=== PATIENT | male | born 1990 | race Caucasian/White ===

== ENCOUNTER 2022-08-23 18:40 | Emergency (ER) | payer OTHER, SELFPAY ==
--- NOTE | ~2022-08-23 | XR_ITS ---
EXAMINATION: XR chest 1V portable Exam Date/Time: 08/23/2022 20:20 SUPERVISING DEPUTY HISTORY: PT FEELS THERE IS FOOD STUCK IN ESOPHAGUS Comparison: None available. RESULT: Lines, tubes, and devices: None. Lungs and pleura: Clear. Cardiomediastinal silhouette: Stable. Other: No acute osseous or upper abdominal finding. Scoliosis. IMPRESSION: No acute cardiopulmonary process. No radiopaque foreign body Reviewed, dictated and finalized at location [facility]. [facility]
[2022-08-23 18:56] VITALS: BP 150/73; PULSE 76; RESP 14; TEMP 37.1; O2SAT 100
--- NOTE | 2022-08-23 20:23 | ED.GENADULT ---
HPI - General Adult General Chief complaint: Unspecified Stated complaint: esophagus obstruction Time Seen by Provider: 08/23/22 20:00 History of Present Illness HPI narrative: This is a 31-year-old male presenting to ED with a chief complaint of food impaction. The patient was eating his mother's roast beef. He said the beef was quite tough. He felt some pressure in his chest and he was unable to swallow foods without vomiting. This lasted for approximately 2-1/2 hours. While he was in our waiting room he felt the obstruction was relieved after some vomiting. His symptoms have now resolved. Patient says that he has had this occur several times over the last 6 months always when eating his mother's roast beef. He always that is because he did not chew it well enough. Related Data Allergies Allergy/AdvReac Type Severity Reaction Status Date / Time No Known Allergies Allergy Unknown Verified 08/23/22 19:02 NKDA Allergy Mild unknown Uncoded 08/23/22 19:02 Review of Systems Review of Systems: CONSTITUTIONAL: Denies night sweats. EYES: No eye pain ENT: Denies rhinorrhea CARDIOVASCULAR: Denies palpitations RESPIRATORY: Denies hemoptysis GASTROINTESTINAL: Denies hematemesis GENITOURINARY: Denies hematuria. SKIN: Denies rash MUSCULOSKELETAL: Denies myalgia. NEUROLOGIC: Denies weakness. PSYCHIATRIC: Denies delusions [facility] Family History Family History Other Carcinoma of colon Family history of cardiovascular disease Family history of malignant neoplasm of brain Family history of thyroid disease Hypertension Malignant neoplasm of prostate Social History Social History Smoking status: Never smoker Second hand tobacco smoke exposure: No Alcohol intake: never Substance use: never Substance use type: does not use Exam Narrative: APPEARANCE: No apparent distress. Head: atraumatic. EYES: EOMI, NOSE: Atraumatic NECK: Trachea midline RESPIRATORY: No increased rate of breathing , clear to auscultation bilaterally CARDIOVASCULAR: RRR, ABDOMINAL: Non-distended, nontender no guarding or rebound MUSCULOSKELETAl: No obvious deformities NEURO: Alert. Moving 4/4 extremities SKIN:: Warm, dry. Normal color PSYCHIATRIC: Normal affect Course Vital Signs Vital signs: Vital Signs Temperature 98.7 F 08/23/22 18:56 Pulse Rate 76 08/23/22 18:56 Respiratory Rate 14 08/23/22 18:56 Blood Pressure 150/73 H 08/23/22 18:56 Pulse Oximetry 100 08/23/22 18:56 Oxygen Delivery Room Air 08/23/22 18:56 Temperature 98.7 F 08/23/22 18:56 Pulse Rate 76 08/23/22 18:56 Respiratory Rate 14 08/23/22 18:56 Blood Pressure 150/73 H 08/23/22 18:56 Pulse Oximetry 100 08/23/22 18:56 Oxygen Delivery Room Air 08/23/22 18:56 Medical Decision Making MDM Narrative Medical decision making narrative: this is a 31-year-old male presenting ED with a food impaction. His symptoms have resolved before he got the emergency department. Chest x-ray was ordered which was normal with no radiopaque foreign bodies. Patient was able to tolerate p.o.. He will be discharged. He has been encouraged to follow up with GI as he has had several incidences of his food impaction with his mother's roast beef over the last 6 months. Vital Signs Vital Signs: Vital Signs Temperature 98.7 F 08/23/22 18:56 Pulse Rate 76 08/23/22 18:56 Respiratory Rate 14 08/23/22 18:56 Blood Pressure 150/73 H 08/23/22 18:56 Pulse Oximetry 100 08/23/22 18:56 Oxygen Delivery Room Air 08/23/22 18:56 Temperature 98.7 F 08/23/22 18:56 Pulse Rate 76 08/23/22 18:56 Respiratory Rate 14 08/23/22 18:56 Blood Pressure 150/73 H 08/23/22 18:56 Pulse Oximetry 100 08/23/22 18:56 Oxygen Delivery Room Air 08/23/22 18:56 Discharge Plan Discharge Clinical Impression: Food impaction
[2022-08-23 21:10] VITALS: BP 127/75; PULSE 85; RESP 17; O2SAT 94
== END 2022-08-23 21:11 | disposition home or self-care (01) ==
PROVIDERS: Emergency Provider Emergency Medicine
DX: T18.128A Food in esophagus causing other injury, initial encounter (principal); X10.1XXA Contact with hot food, initial encounter
CPT/HCPCS: 71045; 99283

== ENCOUNTER 2022-08-24 00:51 | Day surgery (SDC) | payer OTHER, SELFPAY ==
[2022-08-24] VITALS (8 sets, daily range): BP systolic 90–154; BP diastolic 42–96; PULSE 70–117; RESP 18–28; TEMP 36.8; O2SAT 98–100
--- NOTE | ~2022-08-24 | CT_ITS ---
EXAMINATION:CT chest high resolution w con DATE: 08/24/2022 03:06 INDICATION: Food impaction. TECHNIQUE: Computed tomography (CT) of the chest was performed with 75 mL Omnipaque 350 intravenous c ontrast. Automated exposure control and iterative reconstruction technique were employed. The dose-le ngth product (DLP) was 197.96 mGy-cm. COMPARISON: Chest single view 08/23/2022 FINDINGS: There is mild scarring at the lung apices. There is a 5 mm nodule in left lower lobe, likel y benign. No pleural effusion. There is a small sliding hiatal hernia. There is fluid in the esophagu s. There is a 1.8 cm mass of food at the gastroesophageal junction. The heart size is normal. No pleu ral effusion. There is thoracic dextroscoliosis. IMPRESSION: 1. 1.8 cm mass of food at the gastroesophageal junction with retained fluid in the esophagus. 2. Small sliding hiatal hernia. Reviewed, dictated and finalized at location [facility]. [facility]
--- NOTE | 2022-08-24 01:17 | ED.GENADULT ---
HPI - General Adult General Chief complaint: Unspecified Stated complaint: Food Bolus Not Improving Time Seen by Provider: 08/24/22 01:09 History of Present Illness HPI narrative: This is a 31-year-old male presenting to the ED with a food bolus impaction. He was eating a tough roast beef earlier today and felt like he had a sensation of fullness in his throat. He is no longer to able to swallow fluids. He was seen earlier and said that his symptoms resolved and went home but they have recurred. Patient is unable to tolerate liquids. He is able to swallow his own saliva. Patient does not have chest pain or difficulty breathing. The patient states he has had difficulty swallowing tough meats several times over the last 6 months but he has been able to eventually flushed them down with fluids. Patient has a uncle who of esophageal cancer. The uncle was a lifelong smoker and felt the cancer later in life. Related Data Allergies Allergy/AdvReac Type Severity Reaction Status Date / Time No Known Allergies Allergy Unknown Verified 08/24/22 01:00 Review of Systems Review of Systems: CONSTITUTIONAL: Denies night sweats. EYES: No eye pain ENT: Denies rhinorrhea CARDIOVASCULAR: Denies palpitations RESPIRATORY: Denies hemoptysis GASTROINTESTINAL: Denies hematemesis GENITOURINARY: Denies hematuria. SKIN: Denies rash MUSCULOSKELETAL: Denies myalgia. NEUROLOGIC: Denies weakness. PSYCHIATRIC: Denies delusions PMFSH Family History Family History Other Carcinoma of colon Family history of cardiovascular disease Family history of malignant neoplasm of brain Family history of thyroid disease Hypertension Malignant neoplasm of prostate Social History Social History Smoking status: Never smoker Second hand tobacco smoke exposure: No Alcohol intake: never Substance use: never Substance use type: does not use Exam Narrative: APPEARANCE: No apparent distress. Head: atraumatic. normal oropharynx exam. EYES: EOMI, NOSE: Atraumatic NECK: Trachea midline RESPIRATORY: No increased rate of breathing CARDIOVASCULAR: RRR, ABDOMINAL: Non-distended Soft, not tender no guarding or rebound MUSCULOSKELETAl: No obvious deformities NEURO: Alert. Moving 4/4 extremities SKIN:: Warm, dry. Normal color PSYCHIATRIC: Normal affect Course Vital Signs Vital signs: Vital Signs Temperature 98.3 F 12/14/22 00:57 Pulse Rate 117 H 08/24/22 00:57 Respiratory Rate 19 08/24/22 00:57 Blood Pressure 154/96 H 08/24/22 00:57 Pulse Oximetry 100 08/24/22 00:57 Oxygen Delivery Room Air 08/24/22 00:57 Temperature 98.3 F 08/24/22 00:57 Pulse Rate 113 H 08/24/22 02:59 Respiratory Rate 18 08/24/22 02:59 Blood Pressure 146/74 H 08/24/22 02:59 Pulse Oximetry 100 08/24/22 02:59 Oxygen Delivery Room Air 08/24/22 00:57 Medical Decision Making MDM Narrative Medical decision making narrative: This is a 31-year-old male presenting to ED with difficulty swallowing. Differential includes food impaction, esophageal cancer, mobility issues or structural changes the esophagus. patient given IV fluids and antiemetics. Glucagon has poor evidence and was not administered. A CT chest was ordered. no official read was provided overnight. However per my read the esophagus is dilated above the lower esophageal sphincter with internal contents that are consistent with a food impaction. Official read will occur in the morning. Patient will be admitted to the hospital for possible endoscopy in the morning. GI was consulted and report given to Dr. Dillon. Patient has been accepted by Dr. Porras Vital Signs Vital Signs: Vital Signs Temperature 98.3 F 08/24/22 00:57 Pulse Rate 117 H 08/24/22 00:57 Respiratory Rate 19 08/24/22 00:57 Blood Pressure 154/96 H 08/24/22 00:5
[2022-08-24] MEDS: SODIUM CHLORIDE 0.9% IV 1,000 ML 999 ML IV CONT (02:12)
[2022-08-24] MEDS: ONDANSETRON INJ 4 MG/2 ML VIAL IV PUSH (02:12)
[2022-08-24 02:14] LABS: Basophils Absolute Auto 0.1 K/mm3 (0.0-0.1); Basophils Percent Auto 0.6 % (0.2-1.2); Eosinophils Percent Auto 0.5 % (0-4.4); Hemoglobin 16.8 g/dL (14.0-18.0); Immature Granulocyte Absolute 0.02 K/mm3 (0.00-0.031); Immature Granulocyte Percent A 0.2 % (0-0.5); Lymphocytes Absolute Auto 1.74 K/mm3 (0.9-3.2); Lymphocytes Percent Auto 19.7 % (18.3-44.2); Mean Corpuscular HGB Conc 34.3 g/dl (32-36); Mean Corpuscular Volume 84.5 fl (80-100); Mean Platelet Volume 8.3 fl (7.4-10.4); Monocytes Absolute Auto 0.8 K/mm3 (0.1-0.6); Monocytes Percent Auto 8.9 % (2.6-8.5); Neutrophils Absolute Auto 6.2 K/mm3 (1.3-6.7); Neutrophils Percent Auto 70.1 % (45.5-73.1); Platelet Count Result 333 k/mm3 (150-375); Red Cell Distribution Width 13.2 % (11.5-14.5); White Blood Count 8.9 K/mm3 (4.5-10.0)
[2022-08-24 02:28] LABS: Alanine Aminotransferase 22 U/L (6-50); Albumin Level 5.2 g/dL (3.5-5.1); Alkaline Phosphatase 57 U/L (38-126); Anion Gap 10 mmol/L (8-16); Aspartate Amino Transferase 30 U/L (17-59); Bilirubin,Total 1.4 mg/dL (0.2-1.3); Blood Urea Nitrogen 8 mg/dL (9-20); Calcium 9.3 mg/dL (8.4-10.2); Carbon Dioxide 29 mmol/L (22-30); Chloride 99 mmol/L (98-107); Estimated CRCL calculation 101 ml/min; Estimated Glomerular Filt Rate > 60; Glucose 110 mg/dL (65-110); Lipase 62 U/L (23-300); Magnesium 2.1 mg/dL (1.6-2.3); Potassium 3.5 mmol/L (3.4-5.0); Sodium 138 mmol/L (137-145)
[2022-08-24 02:43] LABS: Influenza A QL RT-PCR Negative (Negative); Influenza B QL RT-PCR Negative (Negative); SARS-CoV-2 RNA PCR Negative
--- NOTE | 2022-08-24 03:03 | PC.NURSE ---
Report given to DANNIELLE Escobar.
[2022-08-24] MEDS: LACTATED RINGERS 1,000 ML 125 ML IV CONT (08:15)
[2022-08-24] MEDS: LACTATED RINGERS 1,000 ML 150 ML IV CONT (10:04)
--- NOTE | 2022-08-24 10:15 | PM.HPGS ---
History of Present Illness History of Present Illness Consent: Risks, benefits, and alternatives have been discussed and questions answered. Patient agrees to proceed with procedure. Chief complaint: Food Bolus Not Improving Narrative: Adria De Leon is a 31 year old male who was eating well done piece of meat yesterday when he realized that it became impacted in his esophagus. After several hours of not being able to swallow anything he came to the emergency room. He was initially thought to have passed it and went home around 10:00 p.m. always return few hours later. A CT scan that was done that does show apparent food impaction in the distal esophagus and proximal dilatation. He has noticed intermittent slow passage of food when he eats over the past 6 months. Almost always this is just with being. He denies having problems with heartburn. There is no family history of esophageal problems. Review of Systems Review of Systems: All systems reviewed & are unremarkable except as noted in HPI and below PMFSH Family History Family History Other Carcinoma of colon Family history of cardiovascular disease Family history of malignant neoplasm of brain Family history of thyroid disease Hypertension Malignant neoplasm of prostate Social History Social History Smoking status: Never smoker Second hand tobacco smoke exposure: No Alcohol intake: never Substance use: never Substance use type: does not use Meds Home Medications and Allergies Home Medications Medication Instructions Recorded Confirmed Type sertraline 50 mg tablet 50 mg PO DAILY #30 tabs 08/01/19 08/01/19 Rx Allergies Allergy/AdvReac Type Severity Reaction Status Date / Time No Known Allergies Allergy Unknown Verified 08/24/22 10:02 Vital Signs Vital Signs - 24 hr 08/24/22 00:57 08/24/22 02:59 08/24/22 07:15 Temperature 36.8 C Pulse Rate 117 H 113 H 101 H Respiratory Rate 19 18 18 Blood Pressure 154/96 H 146/74 H 128/67 Pulse Oximetry 100 100 99 Oxygen Delivery Room Air 08/24/22 08:13 Temperature Pulse Rate 117 H Respiratory Rate 18 Blood Pressure 127/75 Pulse Oximetry 100 Oxygen Delivery Exam Const: General: alert Orientation/consciousness: patient oriented x3 Resp: Auscultation: clear to auscultation bilaterally Cardio: Rhythm: regular rhythm GI: GI Palp: Yes Soft to palpation and No Tenderness to palpation present (GI) Neuro: General: patient oriented x3 Assessment and Plan Assessment and plan (1) Dysphagia: Code(s): R13.10 - Dysphagia, unspecified Status: Acute Assessment and Plan: EGD with possible biopsy or dilatation or cautery Or removal of impacted food. Plan I discussed with him the fact that removing impacted food bolus or other objects can result in injury to the esophagus with possible bleeding, possible perforation which possibly could result in the need for surgery or hospitalization.
== END 2022-08-24 11:44 | disposition home or self-care (01) ==
LOC: ANHED 08:33 → ANHSURGERY 10:09 → ANHENDO 11:49
PROVIDERS: Emergency Provider Emergency Medicine; Visit Provider Internal Medicine Gastroenterology
PROC: 0DJ08ZZ Inspection of Upper Intestinal Tract, Via Natural or Artificial Opening Endoscopic (ICD-10-PCS; CPT 43235; principal; 2022-08-24 15:45)
DX: K22.2 Esophageal obstruction (principal); K21.00 Gastro-esophageal reflux disease with esophagitis, without bleeding; Z20.822 Contact with and (suspected) exposure to COVID-19
CPT/HCPCS: 43239; 36415; 71260; 80053; 83690; 83735; 85025; 87636; 88305; 88312; 96361; 96374; 99285; J2405; J2704; J7030; J7120; Q9967